=== PATIENT | male | born 1990 | race Caucasian/White ===

== ENCOUNTER 2017-09-02 16:21 | Emergency (ER) | payer BC, OTHER ==
[~2017-09-02] VITALS: Ht 175.3 cm; Wt 86.0 kg
[~2017-09-02 16:21] MED LIST: NAPR500 PO
[2017-09-02 16:24] VITALS: BP 143/66; PULSE 79; RESP 14; TEMP 98.2; O2SAT 100
[2017-09-02 18:36] VITALS: BP 137/60; PULSE 84; RESP 18; O2SAT 99
[2017-09-02] MEDS ORDERED: SODIUM CHLORIDE 0.9% FLUSH 10 ML FLUSH IV FLUSH PRN (19:00)
[2017-09-02] MEDS ORDERED: SODIUM CHLOR 0.9% 1000 ML INJ 1,000 ML IV SCH (19:00)
[2017-09-02] MEDS ORDERED: MORPHINE SULFATE 4 MG/ML INJ IV PUSH ONE (19:00)
[2017-09-02] MEDS ORDERED: METOCLOPRAMIDE HCL 10 MG/2 ML VIAL IV PUSH ONE (19:00)
--- NOTE | 2017-09-02 19:14 | PD ---
HPI Chief Complaint: Abdominal Pain Time Seen by Provider: 18:22 Travel History International Travel<30 days: No Contact w/Intl Traveler<30days: No Traveled to known affect area: No History of Present Illness HPI 26-year-old male presents to the emergency department for evaluation of intermittent generalized abdominal pain has been ongoing for 2 weeks, but worsening. Patient reports history of Crohn's disease. He states he has not had any problems with it until recently. He does not currently follow up with a sawmill relief worker. Patient states the pain is currently mild, no radiation, aching and crampy. He denies any blood in his stool. He does report some mild diarrhea. No nausea or vomiting. Patient also states he has a pain to his mid upper back that started approximately 1 week ago and is exacerbated by movement. Current pain is 5/10, but increases to 9/10 with movement. He denies any radiation of the pain. He denies a traumatic injury. He denies any chest pain or shortness of breath. No leg edema. No hemoptysis. No history DVT or PE. No recent surgery or travel. He is not tachycardic. He states he went to an urgent care about this and was given a prescription for muscle relaxants and prednisone. He states that those medications did help, but he ran out of them yesterday. No fevers or chills. He denies any other medical problems. He takes no prescribed medications. Moderate severity. PFSH Past Medical History Diminished Hearing: No Gastrointestinal Disorders: Yes (CROHNS ) Immunizations Current: Yes Tetanus Vaccination: < 5 Years Social History Alcohol Use: Yes (1-2 WK) Tobacco Use: No Substance Use: No Allergies-Medications (Allergen,Severity, Reaction): Coded Allergies: No Known Allergies (Verified Allergy, Unknown, 09/02/17) Reported Meds & Prescriptions Reported Meds & Active Scripts Active No Active Prescriptions or Reported Medications Review of Systems Except as stated in HPI: all other systems reviewed are Neg Physical Exam Narrative GENERAL: Well-nourished, well-developed male patient, ambulatory. Afebrile. SKIN: Focused skin assessment warm/dry. HEAD: Normocephalic. Atraumatic. EYES: No scleral icterus. No injection or drainage. NECK: Supple, trachea midline. No JVD or lymphadenopathy. CARDIOVASCULAR: Regular rate and rhythm without murmurs, gallops, or rubs. RESPIRATORY: Breath sounds equal bilaterally. No accessory muscle use. Lung sounds are clear to auscultation. GASTROINTESTINAL: Abdomen soft and nondistended. He has tenderness to the lower abdomen upon palpation. MUSCULOSKELETAL: No cyanosis, or edema. BACK: Nontender without obvious deformity. No CVA tenderness. Data Data Last Documented VS Vital Signs Date Time Temp Pulse Resp B/P (MAP) Pulse Ox O2 Delivery O2 Flow Rate FiO2 09/02/17 20:44 69 16 129/52 (77) 98 Room Air 09/02/17 16:24 98.2 Orders Orders Complete Blood Count With Diff (09/02/17 19:00) Comprehensive Metabolic Panel (09/02/17:) Lipase (09/02/17:) Prothrombin Time / Inr (Pt) (09/02/17:00) Act Partial Throm Time (Ptt) (09/02/17:00) Urinalysis - C+S If Indicated (09/02/17:00) Ct Abd/Pel W Iv Contrast(Rout) (09/02/17 19:00) Iv Access Insert/Monitor (09/02/17:00) Ecg Monitoring (09/02/17:00) Oximetry (09/02/17:00) Morphine Inj (Morphine Inj) (09/02/17:00) Sodium Chlor 0.9% 1000 Ml Inj (Ns 1000 M (09/02/17 19:00) Sodium Chloride 0.9% Flush (Ns Flush) (09/02/17:00) Electrocardiogram (09/02/17:00) Chest, Single Ap (09/02/17 19:00) Creatine Kinase (Cpk) (09/02/17 19:00) Troponin I (09/02/17 19:00) Magnesium (Mg) (09/02/17 19:00) Metoclopramide Inj (Reglan Inj) (09/02/17 19:00) Iohexol 350 Inj (Omnipaque 350 Inj) (09/02/17 20:56) Ciprofloxacin (Cipro) (09/02/17 22:15) Metronidazole (Flagyl) (09/02/17 22:15) Labs Laboratory Tests Test 09/02/17 19:12 White Blood Count 13.0 TH/MM3 Red Blood Count 5.38 MIL/MM3 Hemoglobin 15.1 GM/DL Hematocrit 45.7 % Mean Corpuscular Volume 84.8 FL Mean Corpuscular Hemoglobin 28.1 PG Mean Corpuscular Hemoglobin Concent 33.1 % Red Cell Distribution Width 13.3 % Platelet Count 327 TH/MM3 Mean Platelet Volume 7.1 FL Neutrophils (%) (Auto) 75.6 % Lymphocytes (%) (Auto) 14.2 % Monocytes (%) (Auto) 8.2 % Eosinophils (%) (Auto) 1.5 % Basophils (%) (Auto) 0.5 % Neutrophils # (Auto) 9.8 TH/MM3 Lymphocytes # (Auto) 1.8 TH/MM3 Monocytes # (Auto) 1.1 TH/MM3 Eosinophils # (Auto) 0.2 TH/MM3 Basophils # (Auto) 0.1 TH/MM3 CBC Comment DIFF FINAL Differential Comment Prothrombin Time 9.9 SEC Prothromb Time International Ratio 1.0 RATIO Activated Partial Thromboplast Time 28.2 SEC Blood Urea Nitrogen 11 MG/DL Creatinine 1.21 MG/DL Random Glucose 70 MG/DL Total Protein 9.2 GM/DL Albumin 3.4 GM/DL Calcium Level 8.6 MG/DL Magnesium Level 2.2 MG/DL Alkaline Phosphatase 89 U/L Aspartate Amino Transf (AST/SGOT) 32 U/L Alanine Aminotransferase (ALT/SGPT) 60 U/L Total Bilirubin 0.4 MG/DL Sodium Level 139 MEQ/L Potassium Level 4.1 MEQ/L Chloride Level 105 MEQ/L Carbon Dioxide Level 23.5 MEQ/L Anion Gap 11 MEQ/L Estimat Glomerular Filtration Rate 72 ML/MIN Total Creatine Kinase 66 U/L Troponin I LESS THAN 0.02 NG/ML Lipase 226 U/L [facility] Medical Decision Making Medical Screen Exam Complete: Yes Emergency Medical Condition: Yes Medical Record Reviewed: Yes Interpretation(s) Last Impressions Chest X-Ray 09/02/171899 Signed Impressions: CONCLUSION: No acute cardiopulmonary abnormality is identified. Abdomen/Pelvis CT 09/02/171899 Signed Impressions: CONCLUSION: 1. The findings are diagnostic of a colitis involving the transverse, descendi ng, and proximal sigmoid colon. 2. Mild splenomegaly. Differential Diagnosis Colitis versus Crohn's disease versus UTI versus diverticulitis versus pancreatitis versus muscle strain versus muscle spasm versus unlikely ACS versus pneumonia versus pneumothorax Narrative Course 26-year-old male presents to the emergency department for evaluation abdominal pain with history of Crohn's as well as pain to the upper mid back, worse with movement. Patient is PERC negative. EKG, CBC, CMP, lipase, magnesium, CK, troponin, PTT, PT/INR, UA ordered and pending. Chest x-ray and CT abdomen/ pelvis with IV contrast are ordered and pending. Patient is given morphine 4 mg IV, Reglan 10 mg IV, normal saline 1 L IV bolus. EKG shows sinus rhythm, heart rate 77, no acute ST changes. CBC shows leukocytosis 13.0. CMP shows no acute abnormality. Lipase is 226. Magnesium is 2.2. CK is 66. Troponin is less than 0.02. Coags are unremarkable. Chest x-ray shows no acute abnormality. CT abdomen/pelvis shows findings are diagnostic of a colitis involving the transverse, descending, and proximal sigmoid colon, mild splenomegaly. Patient was discharged prescription for prednisone taper, Flagyl, Cipro. He is given his first dose here. Also be given a muscle relaxant for back pain. He is to follow the primary care physician and sawmill relief worker. He is to return here for any acute worsening of symptoms. The patient was discharged in stable condition with instructions, including return instructions and follow up instructions. Diagnosis Primary Impression: Colitis Additional Impression: Upper back pain Referrals: Brittney Snow MD call for appointment Primary Care Physician call for appointment Patient Instructions: Back Pain (ED), Colitis (ED), General Instructions, Narcotic given in the ED Departure Forms: Tests/Procedures, Work Release Enter return to work date: Sep 05, 2017 Additional Instructions: Take ciprofloxacin and Flagyl as directed until gone. Do not drink alcohol while on Flagyl. Take prednisone taper as directed. Take Robaxin as directed as needed for back pain. Heating pad on low for 20 minutes 4-5 times daily for back pain. Follow-up with sawmill relief worker. Dr. Snow is our sawmill relief worker provider relations representative today. Follow up with your primary care physician. Return to the emergency department for any acute worsening of symptoms. Med/Other Pt SpecificInfo: Prescription(s) given Scripts Methocarbamol (Robaxin) 750 Mg Tab 750 MG PO TID Y for MUSCLE SPASM, #21 TAB 0 Refills Prov: Monika Kirkland 6/25/18 Metronidazole (Flagyl) 500 Mg Tab 500 MG PO TID for Infection for 10 Days, TAB 0 Refills Prov: Monika Kirkland 09/02/17 Ciprofloxacin (Cipro) 500 Mg Tab 500 MG PO BID for Infection for 10 Days, #20 TAB 0 Refills Prov: Monika Kirkland 09/02/17 Prednisone (Prednisone) 10 Mg Tab 10 MG PO DIRECTED for 20 Days, TAB 0 Refills Take 40 mg (4 tablets) daily for 5 days, then Take 30 mg (3 tablets) daily for 5 days, then Take 20 mg (2 tablets) daily for 5 days, then Take 10 mg (1 tablet) daily for 5 days, then stop Prov: Monika Kirkland 09/02/17 Disposition: 01 DISCHARGE HOME Condition: Stable Monika Kirkland Sep 02, 2017 19:14
--- NOTE | 2017-09-02 19:51 | RADRPT ---
EXAM DATE: 09/02/2017 7:19 PM EDT AGE/SEX: 26 years / Male INDICATIONS: Upper back pain for the past week and a half. Possible Crohn's disease flare-up. CLINICAL DATA: This is the patient's initial encounter. Patient reports that signs and symptoms have been present for 2 weeks and indicates a pain score of 5/10. MEDICAL/SURGICAL HISTORY: Crohn's disease. None. COMPARISON: No prior exams available for comparison. FINDINGS: Portable AP view of the chest demonstrates a normal-sized cardiac silhouette. No effusion, consolidat ion, or pneumothorax is identified. The bones and soft tissues demonstrate no acute finding. CONCLUSION: No acute cardiopulmonary abnormality is identified. Electronically signed by: Oscar Byrne MD 09/02/2017 7:50 PM EDT
[2017-09-02 20:13] LABS: AUTOMATED NEUTROPHIL # 9.8 TH/MM3 (1.8-7.7); BASOPHIL # 0.1 TH/MM3 (0-0.2); BASOPHIL % 0.5 % (0.0-2.0); EOSINOPHIL # 0.2 TH/MM3 (0-0.4); EOSINOPHIL % 1.5 % (0.0-4.0); HEMATOCRIT 45.7 % (39.0-51.0); HEMOGLOBIN 15.1 GM/DL (13.0-17.0); LYMPH % 14.2 % (9.0-44.0); LYMPHOCYTE # 1.8 TH/MM3 (1.0-4.8); MEAN CELL VOLUME 84.8 FL (80.0-100.0); MEAN CORPUSCULAR HEMOGLOBIN 28.1 PG (27.0-34.0); MEAN CORPUSCULAR HGB CONC 33.1 % (32.0-36.0); MEAN PLATELET VOLUME 7.1 FL (7.0-11.0); MONO % 8.2 % (0.0-8.0); MONOCYTE # 1.1 TH/MM3 (0-0.9); NEUT % 75.6 % (16.0-70.0); PLATELET COUNT 327 TH/MM3 (150-450); RED BLOOD COUNT 5.38 MIL/MM3 (4.50-5.90); RED CELL DISTRIBUTION WIDTH 13.3 % (11.6-17.2)
[2017-09-02 20:19] LABS: PROTHROMBIN TIME - PATIENT 9.9 SEC (9.8-11.6)
[2017-09-02 20:23] LABS: ALBUMIN 3.4 GM/DL (3.4-5.0); AST (GOT) 32 U/L (15-37); BICARBONATE 23.5 MEQ/L (21.0-32.0); BLOOD UREA NITROGEN 11 MG/DL (7-18); CALCIUM 8.6 MG/DL (8.5-10.1); CHLORIDE 105 MEQ/L (98-107); CREATININE 1.21 MG/DL (0.60-1.30); GLOMERULAR FILTRATION RATE 72 ML/MIN (>89); GLUCOSE,RANDOM 70 MG/DL (74-106); MAGNESIUM 2.2 MG/DL (1.5-2.5); SODIUM (NA) 139 MEQ/L (136-145)
[2017-09-02 20:28] LABS: ALKALINE PHOSPHATASE 89 U/L (45-117); ALT (GPT) 60 U/L (12-78); TOTAL BILIRUBIN ADULT 0.4 MG/DL (0.2-1.0); TOTAL PROTEIN 9.2 GM/DL (6.4-8.2); TROPONIN I LESS THAN 0.02 NG/ML (0.02-0.05)
[2017-09-02 20:44] VITALS: BP 129/52; PULSE 69; RESP 16; O2SAT 98
[2017-09-02] MEDS ORDERED: IOHEXOL 350 MG/ML 10 ML VIAL (for RAD DIAG) IVCONTRAST ONE (20:56)
--- NOTE | 2017-09-02 21:33 | EKG ---
Date Performed: 09/02/2017 Time Performed: 19:21:30 PTAGE: 26 years EKG: Sinus rhythm POSSIBLE RIGHT VENTRICULAR CONDUCTION DELAY BORDERLINE ECG NO PREVIOUS TRACING DOCTOR: Roger Coates Interpretating Date/Time 09/02/2017 21:32:21
--- NOTE | 2017-09-02 21:55 | RADRPT ---
EXAM DATE: 09/02/2017 8:59 PM EDT AGE/SEX: 26 years / Male INDICATIONS: Abdomen pain. CLINICAL DATA: This is the patient's initial encounter. Patient reports that signs and symptoms have been present for 1 day and indicates a pain score of 5/10. MEDICAL/SURGICAL HISTORY: None. None. ORAL CONTRAST: No oral contrast ingested. RADIATION DOSE: 6.84 CTDI (mGy) COMPARISON: No prior exams available for comparison. TECHNIQUE: Multiple contiguous axial images were obtained through the abdomen and pelvis following b olus infusion of 74 ml Omnipaque 350 (iohexol) nonionic water-soluble contrast as a single exam dos e. No oral contrast ingested. Using automated exposure control and adjustment of the mA and/or kV ac cording to patient size, radiation dose was kept as low as reasonably achievable to obtain optimal di agnostic quality images. DICOM format image data is available electronically for review and comparis on. FINDINGS: Lower chest: There is mild atelectasis at the lung bases. Hepatobiliary: No focal liver lesion is identified. Hepatic vasculature demonstrates no abnormality. No calcified gallstones are present. Kidneys: No hydronephrosis, stone, or mass. Adrenal Glands: Within normal limits. Spleen: The spleen is enlarged measuring 14.8 cm in length. Pancreas: Within normal limits. Vascular: The aorta is nonaneurysmal. Bowel/Mesentery: Stomach and small bowel demonstrate no acute abnormality. Appendix and terminal ileu m have a normal appearance. There is abnormal wall thickening and pericolonic inflammation involving the transverse colon, descending colon, and proximal sigmoid colon. Distal sigmoid colon and rectum h ave a normal appearance. There is no free air or free fluid. Mesenteric vasculature demonstrates no a bnormality. Abdominal Wall: No hernia is visualized. Retroperitoneum: No lymphadenopathy. Bladder: No wall thickening or mass. Reproductive: Within normal limits. Inguinal: No lymphadenopathy or hernia. Musculoskeletal: No acute osseous abnormality is identified. CONCLUSION: 1. The findings are diagnostic of a colitis involving the transverse, descending, and proximal sigmo id colon. 2. Mild splenomegaly. Electronically signed by: Oscar Byrne MD 09/02/2017 9:54 PM EDT
[2017-09-02] MEDS ORDERED: metroNIDAZOLE 500 MG TAB PO ONE (22:15)
[2017-09-02] MEDS ORDERED: CIPROFLOXACIN 500 MG TAB PO ONE (22:15)
[2017-09-02] MEDS ORDERED: ROBA750T PO (22:18)
[2017-09-02] MEDS ORDERED: METR-1 PO (22:18)
[2017-09-02] MEDS ORDERED: PRED10 PO (22:18)
[2017-09-02] MEDS ORDERED: CIPR-9 PO (22:18)
== END 2017-09-02 22:47 | disposition home or self-care (01) ==
LOC: NEPE 16:21
DX: K50.90 Crohn's disease, unspecified, without complications (principal); M54.6 Pain in thoracic spine; R16.1 Splenomegaly, not elsewhere classified
CPT/HCPCS: 71045; 74177; 80053; 82550; 83690; 83735; 84484; 85025; 85610; 85730; 93005; 96361; 96374; 96375; 99285; J2270; J2765; J7030; Q9967